=== PATIENT | male | born 1975 | race African-American/Black ===

== ENCOUNTER 2021-10-17 08:57 | Emergency (ER) | payer OTHER, SELFPAY ==
[2021-10-17] MEDS ORDERED: predniSONE 20 MG TAB ONE (09:33)
[2021-10-17] MEDS ORDERED: Albuterol Sulfate 2.5 mg/3 ml Neb ONE (09:33)
== END 2021-10-17 10:05 | disposition home or self-care (01) ==
LOC: NAV ERS 08:57
DX: J45.901 Unspecified asthma with (acute) exacerbation (principal); F17.210 Nicotine dependence, cigarettes, uncomplicated
CPT/HCPCS: 93005; 94640; J7512; J7611